=== PATIENT | male | born 1970 | race African-American/Black ===

== ENCOUNTER 2024-07-03 20:08 | Inpatient (IN) | payer OTHER ==
[2024-07-03 20:33] VITALS: BMI 26.2
[2024-07-03] MEDS ORDERED: guaiFENesin 600 MG TABLET.ER (FP) PO PRN (22:59)
[2024-07-03] MEDS ORDERED: IBUPROFEN 600 MG TABLET (FP) PO PRN (22:59)
[2024-07-03] MEDS ORDERED: hydrOXYzine PAMOATE 25 MG CAPSULE (FP) PO PRN (22:59)
[2024-07-03] MEDS ORDERED: BENZONATATE 200 MG CAPSULE PO PRN (22:59)
[2024-07-03] MEDS ORDERED: NALOXONE (NARCAN) HCL 4 MG/0.1 ML SPRAY NS PRN (22:59)
[2024-07-03] MEDS ORDERED: POLYETHYLENE GLYCOL (HEALTHYLAX) 3350 17 GM PACKET PO PRN (22:59)
[2024-07-03] MEDS ORDERED: MAGNESIUM HYDROX 2400MG/30ML ORAL SUSPENSION 30 ML CUP PO PRN (22:59)
[2024-07-03] MEDS ORDERED: BENZOCAINE/MENTHOL (CHLORASEPTIC ) LOZENGE MM PRN (22:59)
[2024-07-03] MEDS ORDERED: MAG HYDROX/AL HYDROX/SIMETH 30 ML UNIT-DOSE CUP PO PRN (22:59)
[2024-07-03] MEDS ORDERED: ACETAMINOPHEN 325 MG TABLET (FP) PO PRN (22:59)
[2024-07-03] MEDS ORDERED: NICOTINE POLACRILEX 2 MG GUM BUC PRN (22:59)
[2024-07-03] MEDS ORDERED: LOPERAMIDE HCL 2 MG CAPSULE PO PRN (22:59)
[2024-07-04] MEDS: MELATONIN 5 MG TABLETS PO SCH (00:22)
[2024-07-04 08:29] LABS: HEMATOCRIT 36.3 % (35.4-49); HEMOGLOBIN 11.9 GM/dL (11.7-16.9); MCH 28.5 pg (25.7-33.7); MCHC 32.8 g/dl (32.0-35.9); MEAN PLT VOLUME 8.8 fl (7.5-11.1); PLATELET COUNT 173 10^3/uL (134-434); RBC 4.17 M/mm3 (4.00-5.60)
[2024-07-04 08:33] LABS: CHLORIDE 107 mmol/L (98-107); SODIUM 141 mmol/L (136-145)
[2024-07-04 08:36] LABS: ALBUMIN 3.3 g/dl (3.4-5.0); ANION GAP 3 mmol/L (4-13); CO2 31 mmol/L (21-32); GLUCOSE,RANDOM 94 mg/dL (74-106)
[2024-07-04 08:39] LABS: SGOT/AST 44 U/L (15-37); SGPT/ALT 25 U/L (13-61)
[2024-07-04 08:40] LABS: BILIRUBIN,TOTAL 0.5 mg/dL (0.2-1); TOT PROT 6.5 g/dl (6.4-8.2)
[2024-07-04 08:42] LABS: ALK PHOS 60 U/L (45-117)
[2024-07-04] MEDS: TUBERCULIN PPD 5 TU/0.1ML SYRINGE (IN PATIENT USE ONLY) ID ONE (08:50)
[2024-07-04] MEDS: PRENATAL VITAMINS W/ FOLIC ACID TABLET (FP) PO SCH (09:06)
[2024-07-04] MEDS: NICOTINE 21 MG/24 HOURS TOPICAL PATCH TD SCH (09:12)
[2024-07-04] MEDS: CITALOPRAM HYDROBROMIDE 20 MG TABLET PO SCH (12:19)
[2024-07-04 14:23] LABS: PH,URINE 5.5 (5.0-8.0); URINE APPEARANCE CLEAR; URINE BILIRUBIN NEGATIVE (NEGATIVE); URINE COLOR YELLOW; URINE GLUCOSE (UA) NEGATIVE (NEGATIVE); URINE KETONE NEGATIVE (NEGATIVE); URINE LEUK ESTERASE NEGATIVE (NEGATIVE); URINE NITRITE NEGATIVE (NEGATIVE); URINE PROTEIN NEGATIVE (NEGATIVE)
[2024-07-04] MEDS: THIAMINE 100 MG TABLET PO SCH (21:10)
[2024-07-04] MEDS: OLANZapine 10 MG TABLET PO SCH (21:10)
[2024-07-08] MEDS: NALTREXONE HCL 50 MG TABLET PO ONE (17:34)
[2024-07-09] MEDS: BACLOFEN 10 MG TABLET (FP) PO SCH (10:30)
[2024-07-09] MEDS: NALTREXONE HCL 50 MG TABLET PO SCH (10:30)
[2024-07-09] MEDS: SUVOREXANT 10 MG TABLET PO PRN (22:07)
[2024-07-10] MEDS: IBUPROFEN 400 MG TABLET (FP) PO PRN (09:11)
[2024-07-11] MEDS: SUVOREXANT 10 MG TABLET PO PRN (21:25)
[2024-07-15 05:47] VITALS: BP 107/71; PULSE 83; RESP 17; TEMP 97.5
[2024-07-15] MEDS: NALOXONE (NYS OPIOID OVERDOSE PROGRAM) 4 MG/0.1 ML SPRAY NS SCH (09:55)
[2024-07-17] MEDS ORDERED: NALTREXONE MICROSPHERES (VIVITROL) 380 MG DISP.SYRIN IM ONE ×2 (10:00)
== END 2024-07-15 10:26 | disposition home or self-care (01) | DRG 772 ==
LOC: YASAS 20:08 → Y3NR 23:23 → Y3W 07-04 13:22
PROVIDERS: ADMIT Allergy & Immunology; ATTEND Psychiatry & Neurology Pain Medicine
PROC: HZ42ZZZ Group Counseling for Substance Abuse Treatment, Cognitive-Behavioral (ICD-10-PCS; principal; 2024-07-03)
DX: F10.20 Alcohol dependence, uncomplicated (principal); F14.20 Cocaine dependence, uncomplicated; F12.20 Cannabis dependence, uncomplicated; F17.210 Nicotine dependence, cigarettes, uncomplicated; F19.282 Other psychoactive substance dependence with psychoactive substance-induced sleep disorder; F19.280 Other psychoactive substance dependence with psychoactive substance-induced anxiety disorder; F19.24 Other psychoactive substance dependence with psychoactive substance-induced mood disorder; F25.9 Schizoaffective disorder, unspecified; F31.9 Bipolar disorder, unspecified; F43.10 Post-traumatic stress disorder, unspecified; F41.9 Anxiety disorder, unspecified; J45.909 Unspecified asthma, uncomplicated; Z56.0 Unemployment, unspecified; Z59.00 Homelessness unspecified
CPT/HCPCS: 36415; 80053; 80305; 80307; 81003; 85027; 86780; 87811; 93005; 93010; J0475